=== PATIENT | female | born 1970 | race Caucasian/White ===

== ENCOUNTER 2019-08-13 20:52 | Emergency (ER) | payer OTHER, SELFPAY ==
--- NOTE | ~2019-08-13 | XR_ITS ---
EXAMINATION: XR chest 2V DATE: 08/13/2019 21:39 INDICATION: Midsternal chest pain and shortness of breath TECHNIQUE: PA and lateral views of the chest are obtained. COMPARISON: None available FINDINGS: The lungs are free of acute opacities. There is no pleural effusion or pneumothorax. The ca rdiomediastinal silhouette is normal. There is mild deformity of the sternum. The visualized bones an d soft tissues are otherwise unremarkable. IMPRESSION: 1. No acute cardiopulmonary abnormality. Reviewed, dictated and finalized at location A.
[2019-08-13 20:54] VITALS: BP 177/96; PULSE 93; RESP 18; TEMP 36.1; O2SAT 99
--- NOTE | 2019-08-13 21:00 | ECG_ITS ---
Measurements Intervals [place] Rate: 79 P: 37 OK: 205 QRS: 21 QRSD: 97 T: -6 QT: 381 QTc: 439 Interpretive Statements SINUS RHYTHM DELAYED PRECORDIAL R/S TRANSITION BORDERLINE ST-T WAVE ABNORMALITY- INFERIOR LEADS BASELINE ARTIFACT- III, AVF BORDERLINE ECG Electronically Signed On 08-19-2019 15:16:36 SUSTAINABLE DESIGN COORDINATOR by Wicho Carpenter D.O.
--- NOTE | 2019-08-13 21:08 | ED.CHESTPAIN ---
HPI - Chest Pain General Chief Complaint: Chest Pain Stated Complaint: sharp cp's all day; hi b/p Time Seen by Provider: 08/13/19 21:04 Source: patient and RN notes reviewed Mode of arrival: ambulatory Limitations: no limitations History of Present Illness HPI narrative: A 49 y/o female presents to the ED with intermittent, sharp, central CP beginning roughly 9 hours ago. She states that the pain lasts a couple seconds at a time and occurred roughly every hour. She reports associated nausea and HTN. She notes that the pain is aggravated when she takes a deep breath and that Tylenol helped alleviate it. She also notes that she was dx with a sinus infection 2 weeks ago and was placed on Amoxicillin and that she was dx with the flu last week. She denies any vomiting, diarrhea, sweats, SOB, leg edema, or ABD pain. MD complaint: chest pain Onset (ago): hour(s) (9) Timing of current episode: episodic Pain location: other (central) Quality: sharp Relieving factors: other (Tylenol) Exacerbating factors: inspiration Associated symptoms: nausea and other (HTN) Treatment prior to arrival: other (Tylenol) Risk Factors Coronary artery disease risk factors: hypertension Related Data Allergies Allergy/AdvReac Type Severity Reaction Status Date / Time No Known Allergies Allergy Mild Verified 08/25/10 14:54 Review of Systems Review of Systems: All systems reviewed & are unremarkable except as noted in HPI and below Constitutional: Constitutional: Denies other (sweats) Cardiovascular: Cardiovascular: Reports chest pain (central), Denies leg edema and Reports other (HTN) Respiratory: Respiratory: Denies dyspnea Gastrointestinal: Gastrointestinal: Denies abdominal pain, Denies diarrhea, Reports nausea and Denies vomiting PMFSH Past Medical History Medical History (Updated 08/14/19 @ 04:39 by Sacha Bermudez MD) H/O: HTN (hypertension) Hx of endometriosis Surgical History Surgical History (Updated 08/14/19 @ 04:39 by Sacha Bermudez MD) History of cholecystectomy History of endometrial ablation x2. History of hysterectomy Social History Social History (Updated 08/13/19 @ 21:25 by Alhaji Suarez) Smoking status: Unknown if ever smoked Gender identity (if verbalized by the patient): Female Exam Narrative: Exam Narrative: GENERAL: Well-appearing, well-nourished, and in no acute distress. HEAD: Normocephalic, atraumatic. ENT: Mucous membranes moist. CHEST: Clear to auscultation. No respiratory distress. Pectus excavatum. HEART: Regular rate and rhythm. Normal peripheral pulses. ABDOMEN: Soft, nontender, nondistended. EXTREMITIES: Normal range of motion. No edema. SKIN: Warm, dry, no rash. NEURO: Alert and oriented x3. Course Course Emergency Course: Patient informed of results. Discharge home. Recommend follow-up with PCP. Chest pain felt to be related to frequent coughing from patient's infections over the last couple weeks. Vital Signs Vital signs: Vital Signs Temperature 97.0 F L 08/13/19 20:54 Pulse Rate 93 08/13/19 20:54 Respiratory Rate 18 08/13/19 20:54 Blood Pressure 177/96 H 08/13/19 20:54 Pulse Oximetry 99 08/13/19 20:54 Temperature 97.0 F L 08/13/19 20:54 Pulse Rate 81 08/14/19 00:42 Respiratory Rate 22 H 08/14/19 00:42 Blood Pressure 129/91 H 08/14/19 00:42 Pulse Oximetry 97 08/14/19 00:42 MDM - Chest Pain Lab Data Result diagrams: 08/13/19 22:16 08/13/19 22:16 Labs: Lab Results 08/13/19 08/13/19 08/13/19 Range/Units 22:16 22:16 22:16 WBC 6.9 (4.5-10.0) K/mm3 RBC 4.02 L (4.2-5.4) M/mm3 Hgb 11.6 L (12.0-15.0) g/dL Hct 35.4 L (37.0-47.0) % MCV 88.1 (80-100) fl MCH 28.9 (26-34) pg MCHC 32.8 (32-36) g/dl RDW 12.9 (11.5-14.5) % Plt Count 248 (150-375) k/mm3 MPV 11.7 H (7.4-10.4) fl Immature Gran % (Auto) 0.4 (0-0.5) % Neut % (Auto) 64.6 (45.5-73.1) % Lymph % (
[2019-08-13] MEDS: KETOROLAC 30 MG/ML VIAL (*BKC) IV PUSH (22:34)
[2019-08-13 22:55] LABS: Basophils Percent Auto 0.3 % (0.2-1.2); Eosinophils Absolute Auto 0.3 K/mm3 (0-0.3); Eosinophils Percent Auto 4.2 % (0-4.4); Hematocrit 35.4 % (37.0-47.0); Hemoglobin 11.6 g/dL (12.0-15.0); Immature Granulocyte Absolute 0.03 K/mm3 (0.00-0.031); Immature Granulocyte Percent A 0.4 % (0-0.5); Lymphocytes Absolute Auto 1.73 K/mm3 (0.9-3.2); Lymphocytes Percent Auto 25.1 % (18.3-44.2); Mean Corpuscular HGB Conc 32.8 g/dl (32-36); Mean Corpuscular Hemoglobin 28.9 pg (26-34); Mean Corpuscular Volume 88.1 fl (80-100); Mean Platelet Volume 11.7 fl (7.4-10.4); Monocytes Absolute Auto 0.4 K/mm3 (0.1-0.6); Monocytes Percent Auto 5.4 % (2.6-8.5); Neutrophils Absolute Auto 4.5 K/mm3 (1.3-6.7); Neutrophils Percent Auto 64.6 % (45.5-73.1); Platelet Count Result 248 k/mm3 (150-375); Red Blood Count 4.02 M/mm3 (4.2-5.4); Red Cell Distribution Width 12.9 % (11.5-14.5); White Blood Count 6.9 K/mm3 (4.5-10.0)
[2019-08-13 23:05] LABS: INR 0.9; Prothrombin Time 11.8 Seconds (11.1-14.7)
[2019-08-13 23:06] LABS: Partial Thromboplastin Time 29.2 SECONDS (22.3-36.8)
[2019-08-13 23:07] LABS: Blood Urea Nitrogen 19 mg/dL (7-17); Calcium 9.8 mg/dL (8.4-10.2); Carbon Dioxide 27 mmol/L (22-30); Chloride 100 mmol/L (98-107); Estimated Glomerular Filt Rate > 60; Glucose 90 mg/dL (65-105); Potassium 3.4 mmol/L (3.4-5.0); Sodium 141 mmol/L (137-145)
[2019-08-13 23:13] VITALS: BP 156/82; PULSE 77; RESP 18; O2SAT 100
[2019-08-13 23:19] LABS: Troponin I < 0.012 ng/mL (0.000-0.034)
[2019-08-13 23:50] VITALS: BP 127/74; PULSE 69; RESP 15; O2SAT 97
[2019-08-14 00:42] VITALS: BP 129/91; PULSE 81; RESP 22; O2SAT 97
== END 2019-08-14 00:35 | disposition home or self-care (01) ==
PROVIDERS: Emergency Provider Emergency Medicine; PCP Family Medicine
DX: R07.89 Other chest pain (principal); I10 Essential (primary) hypertension
CPT/HCPCS: 36415; 71046; 80048; 84484; 85025; 85610; 85730; 93005; 96374; 99284; J1885

== ENCOUNTER 2024-01-06 15:52 | Outpatient (CLI) | payer OTHER, SELFPAY ==
--- NOTE | ~2024-01-06 | CT_ITS ---
EXAMINATION: CTA chest DATE: 01/06/2024 16:20 INDICATION: Ascending aortic aneurysm. TECHNIQUE: Computed tomographic angiography (CTA) of the chest was performed with 100 mL Omnipaque-35 0 intravenous contrast. Automated exposure control and iterative reconstruction technique were employ ed. The dose-length product was 788.98 mGy-cm. Maximum intensity projection 3D-reconstructions of the aorta and other arteries were constructed by the technologist on a separate workstation. COMPARISON: None. FINDINGS: The lung volumes are small. The lungs demonstrate mild atelectasis. No pleural effusion. Th e heart size is normal. No pericardial effusion. Thoracic aorta is normal in caliber. There is mild a ortic atherosclerosis. There are changes of cholecystectomy. There is mild thoracic spondylosis. Pect us excavatum is noted. IMPRESSION: 1. Mild aortic atherosclerosis. No aneurysm. Reviewed, dictated and finalized at location E.
[2024-01-06 16:15] LABS: Estimated Glomerular Filt Rate > 60
== END 2024-01-06 15:53 | disposition home or self-care (01) ==
LOC: ANHIMG 15:54
PROVIDERS: PCP Family Medicine; Visit Provider Internal Medicine Cardiovascular Disease
DX: I70.0 Atherosclerosis of aorta (principal); Z82.49 Family history of ischemic heart disease and other diseases of the circulatory system
CPT/HCPCS: 71275; Q9967

== ENCOUNTER 2024-02-13 08:20 | Outpatient (CLI) | payer OTHER, SELFPAY ==
--- NOTE | 2024-02-13 08:46 | EST_ITS ---
Patient Info Name: Ashley Galvan Age: 53 years : 1970 Gender: Female Ht: 62 in Wt: 200 lbs BSA: 2.04 m2 HR: 71 bpm BP: 111 / 54 mmHg Exam Date: 02/13/2024 8:56 AM Exam Location: [facility] Patient Status: Outpatient Admit Date: 02/13/2024 Staff Ordering Physician: Wicho Carpenter DO Attending Provider: Wicho Carpenter DO Exercise Technologist: Ofelia Newman RDCS Exercise Physician: Wicho Carpenter DO Exam Type: CA stress test treadmill Study Info A treadmill exercise stress test was performed. Summary 1. 1. Negative Se exercise stress test for ischemic ST changes by ECG criteria. However, patient achieved only 83% MPHR for age group which reduces sensitivity of the test. 2. 2. Reduced functional capacity, achieving 7 METs of workload. 3. 3. Appropriate HR response to exercise. 4. 4. Appropriate HR recovery at 1 minute post exercise. 5. 5. No imaging with stress testing. 6. 6. Patient informed of the above results. Protocol: Se Stress ECG Details Stage: REST Duration (min): 5 min : 8 sec Speed (mph): 0.0 Grade (%): 0 HR (bpm): 71 SBP (mmHg): 111 DBP (mmHg): 54 METS: --- Stage: REST Duration (min): 7 min : 35 sec Speed (mph): 0.0 Grade (%): 0 HR (bpm): 80 SBP (mmHg): 111 DBP (mmHg): 54 METS: --- Stage: STAGE 1 Duration (min): 1 min : 0 sec Speed (mph): 1.7 Grade (%): 10 HR (bpm): 106 SBP (mmHg): 111 DBP (mmHg): 54 METS: --- Stage: STAGE 1 Duration (min): 2 min : 0 sec Speed (mph): 1.7 Grade (%): 10 HR (bpm): 117 SBP (mmHg): 111 DBP (mmHg): 54 METS: --- Stage: STAGE 1 Duration (min): 3 min : 0 sec Speed (mph): 1.7 Grade (%): 10 HR (bpm): 121 SBP (mmHg): 146 DBP (mmHg): 60 METS: --- Stage: STAGE 2 Duration (min): 1 min : 0 sec Speed (mph): 2.5 Grade (%): 12 HR (bpm): 133 SBP (mmHg): 146 DBP (mmHg): 60 METS: --- Stage: STAGE 2 Duration (min): 2 min : 0 sec Speed (mph): 2.5 Grade (%): 12 HR (bpm): 137 SBP (mmHg): 146 DBP (mmHg): 60 METS: --- Stage: STAGE 2 Duration (min): 3 min : 0 sec Speed (mph): 2.5 Grade (%): 12 HR (bpm): 136 SBP (mmHg): 157 DBP (mmHg): 88 METS: --- Stage: RECOVERY Duration (min): 0 min : 59 sec Speed (mph): 0.0 Grade (%): 0 HR (bpm): 122 SBP (mmHg): 182 DBP (mmHg): 89 METS: --- Stage: RECOVERY Duration (min): 1 min : 59 sec Speed (mph): 0.0 Grade (%): 0 HR (bpm): 101 SBP (mmHg): 182 DBP (mmHg): 89 METS: --- Stage: RECOVERY Duration (min): 2 min : 59 sec Speed (mph): 0.0 Grade (%): 0 HR (bpm): 97 SBP (mmHg): 182 DBP (mmHg): 89 METS: --- Stage: RECOVERY Duration (min): 3 min : 59 sec Speed (mph): 0.0 Grade (%): 0 HR (bpm): 94 SBP (mmHg): 124 DBP (mmHg): 64 METS: --- Stage: RECOVERY Duration (min): 4 min : 3 sec Speed (mph): 0.0 Grade (%): 0 HR (bpm): 92 SBP (mmHg): 124 DBP (mmH
== END 2024-02-13 08:21 | disposition home or self-care (01) ==
PROVIDERS: PCP Family Medicine; Visit Provider Internal Medicine Cardiovascular Disease
DX: R07.9 Chest pain, unspecified (principal)
CPT/HCPCS: 93017